=== PATIENT | female | born 1980 | race Caucasian/White ===

== ENCOUNTER 2016-08-24 11:22 | Emergency (ER) | payer BC ==
[2016-08-24 11:39] VITALS: TEMP 98.6; O2SAT 96
[2016-08-24] MEDS ORDERED: KETOROLAC TROMETHAMINE INJ 30 MG/ML VIAL IM ONE (11:43)
[2016-08-24] MEDS ORDERED: HYDROcodone 7.5MG/APAP 325MG 1 EA TAB PO ONE (11:43)
--- NOTE | 2016-08-24 12:17 | RAD ---
EXAM DESCRIPTION: Lumbar Spine 3 Views CLINICAL HISTORY: 36 years Female, lbp with rad to groin on left COMPARISON: None. FINDINGS: 3 views of the lumbar spine show no vertebral body fracture or subluxation. The disc spaces are well-maintained. The sacroiliac joints are unremarkable. 2 calcifications project over the left kidney and suggest left-sided nephrolithiasis including a possible staghorn calculus in the left renal pelvis. No left ureteral calculus is identified. IMPRESSION: Left-sided nephrolithiasis including a probable small staghorn calculus in the left renal pelvis, but no additional lumbar spine abnormality. If clinically suspicious of a ureteral calculus, noncontrast CT is recommended. Electronically signed by: Skip Steiner MD 08/24/2016 12:15 PM CDT [email or web address]
--- NOTE | 2016-08-24 12:18 | RAD ---
EXAM DESCRIPTION: KUB CLINICAL HISTORY: 36 years Female, lbp with rad to groin on left COMPARISON: None. FINDINGS: 2 AP views of the abdomen and pelvis show a nonobstructive bowel gas pattern with a moderate amount stool and gas scattered the colon. There are at least 2 small calcifications projecting over the left kidney. A tiny calcification in the left side of the pelvis probably represents a phlebolith. No concerning bone lesion. IMPRESSION: Moderate amount of colonic stool and gas without obstruction. Left-sided nephrolithiasis with a probable phlebolith in the left-sided the pelvis. If clinically suspicious of a left ureteral calculus, noncontrast CT is recommended. Electronically signed by: Skip Steiner MD 08/24/2016 12:16 PM CDT Workstation: [email or web address]
--- NOTE | 2016-08-24 12:58 | CT ---
EXAM DESCRIPTION: Abdomen/Pelvis w/o Contrast CLINICAL HISTORY: let back and abd pain, hx of renal stones COMPARISON: None. TECHNIQUE: CT of the abdomen and pelvis was performed without contrast. Multiple axial images and multiplanar reconstructions were generated. This exam was performed according to our departmental dose-optimization program, which includes automated exposure control, adjustment of the mA and/or kV according to patient size and/or use of iterative reconstruction technique. FINDINGS: There is artifact from the patient's body wall contacting both sides of the CT gantry. This reduces image quality and somewhat limits evaluation. Lung bases: The visualized lung bases are clear. Solid organs: There is an obstructing 1.5 cm calculus at the left ureteropelvic junction with moderate to severe hydronephrosis and perinephric stranding. There is also a 1 cm nonobstructing calculus in the inferior pole of the left kidney. Evaluation of the solid organs is limited due to lack of IV contrast. Hepatic steatosis. Cholelithiasis. The spleen, pancreas, right kidney, and adrenal glands are unremarkable. Gastrointestinal: The stomach and small intestine are unremarkable. Scattered colonic diverticulosis is present without CT evidence for diverticulitis. The appendix is not definitely visualized, but there is no pericecal inflammation. No free fluid or free air. Vascular: Limited evaluation due to lack of IV contrast. The abdominal aorta is normal in caliber. Lymph nodes: No pathologically enlarged lymph nodes are present by CT size criteria. Musculoskeletal and soft tissues: No destructive osseous lesions are present. Urinary bladder and pelvic organs: The urinary bladder is normal. The uterus and adnexal structures are unremarkable. IMPRESSION: 1. Obstructing 1.5 cm calculus at the left ureteropelvic junction with moderate to severe left hydronephrosis and perinephric stranding. 2. Additional nonobstructing left nephrolithiasis. 3. Cholelithiasis. 4. Hepatic steatosis. 5. Colonic diverticulosis without CT evidence for diverticulitis. Electronically signed by: Slade Fabian MD 08/24/2016 12:56 PM CDT
--- NOTE | 2016-08-24 13:30 | ED.PDOC ---
History of Present Illness - General Chief Complaint: GI Problem Stated Complaint: back pain Time Seen by Provider: 08/24/16 11:23 Source: patient Exam Limitations: no limitations - History of Present Illness Initial Comments: the patient is a 36-year-old female presenting to the emergency room secondary to left flank pain with radiation around to her groin. The patient has had some mild urinary frequency. She does have a history of kidney stones in the past. Pain started in its worst yesterday. She had had a little bit of pain prior. No fevers. Mild nausea when the pains at its worst. No syncope. No diarrhea. No constipation. Timing/Duration: unsure Severity: severe Improving Factors: nothing Worsening Factors: nothing Associated Symptoms: malaise, nausea/vomiting Allergies/Adverse Reactions: Allergies Promethazine [From Phenergan] Adverse Reaction (Verified 08/24/16 11:40) Home Medications: Ambulatory Orders Atenolol [Tenormin] 100 mg PO DAILY 08/24/16 Chlorthalidone 25 mg PO DAILY 08/24/16 Review of Systems - Review of Systems Constitutional: States: malaise EENTM: States: no symptoms reported Respiratory: States: no symptoms reported Cardiology: States: no symptoms reported Gastrointestinal/Abdominal: States: abdominal pain Genitourinary: States: see HPI Past Medical History (General) - Patient Medical History Hx Hypertension: Yes Hx Renal Disease: - kidney stones Surgical History: appendectomy - Vaccination History Hx Influenza Vaccination: No - Social History Hx Tobacco Use: No Hx Alcohol Use: No Hx Substance Use: No Hx Substance Use Treatment: No Hx Depression: No - Activities of Daily Living Hospice Agency (if applicable):: None - Female History Patient is a Female of Child Bearing Age (10 -59 yrs old): Yes Patient : No Family Medical History - Family History Mother Family History: Unknown Physical Exam - Physical Exam General Appearance: Alert, No apparent distress, Obvious distress Eye Exam: bilateral normal Ears, Nose, Throat: normal ENT inspection, normal pharynx Neck: full range of motion, supple, normal inspection Respiratory: chest non-tender, lungs clear, normal breath sounds, no respiratory distress, no accessory muscle use Cardiovascular/Chest: normal peripheral pulses, regular rate, rhythm, no edema Peripheral Pulses: radial,left: 2+, dorsalis pedis,right: 2+, dorsalis pedis, left: 2+ Gastrointestinal/Abdominal: soft, other - the patient is morbidly obese. She does have some mild left lower quadrant to left abdominal discomfort palpation. 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 Lab work looks fairly reassuring however CT scan shows a 1.5 cm obstructing stone in the left ureteropelvic junction with very significant hydronephrosis and perinephric stranding. The patient has responded fairly well to pain medications. We have contacted urology and they have agreed to see her this evening. Blood pressure was elevated but patient was in significant pain. She does need to continue her pressure medications and keep a blood pressure diary to make sure this is gotten under better control. repeat blood pressure here was 145/93. ER warnings are given for any significant worsening. he patient received a dose of hydrocodone and Toradol while here. nothing by mouth for now. - Results/Orders Results/Orders: Laboratory Tests 08/24/16 08/24/16 08/24/16 11:43 11:49 12:30 WBC 10.3 RBC 4.14 L Hgb 12.1 Hct 36.4 MCV 87.9 MCH 29.2 MCHC 33.3 RDW 12.4 Plt Count 273 MPV 9.0 Absolute Neuts (auto) 7.30 H Absolute Lymphs (auto) 1.90 Absolute Monos (auto) 0.80 Absolute Eos (auto) 0.30 Absolute Basos (auto) 0.10 Neutrophils % 70.2 Lymphocytes % 18.4 L Monocytes % 7.4 Eosinophils % 2.6 Basophils % 1.4 PT INR PTT (SP) Sodium Potassium Chloride Carbon Dioxide Anion Gap BUN Creatinine BUN/Creatinine Ratio Random Glucose Serum Osmolality Calcium Total Bilirubin AST ALT Alkaline Phosphatase Serum Total Protein Albumin Globulin Albumin/Globulin Ratio Urine Color Yellow Urine Appearance Clear Urine pH 6.5 Ur Specific Ralph 1.025 Urine Protein Trace Urine Glucose (UA) Negative Urine Ketones Negative Urine Blood Trace-intact H Urine Nitrite Negative Urine Bilirubin Negative Urine Urobilinogen 0.2 Ur Leukocyte Esterase Negative Urine RBC 1-3 Urine WBC 0-1 Ur Epithelial Cells 3-5 Urine Bacteria Rare Urine HCG, Qual Negative 08/24/16 08/24/16 12:30 12:30 WBC RBC Hgb Hct MCV MCH MCHC RDW Plt Count MPV Absolute Neuts (auto) Absolute Lymphs (auto) Absolute Monos (auto) Absolute Eos (auto) Absolute Basos (auto) Neutrophils % Lymphocytes % Monocytes % Eosinophils % Basophils % PT 12.4 INR 1.100 PTT (SP) 35.4 Sodium 136 Potassium 4.5 Chloride 100 L Carbon Dioxide 27 Anion Gap 13.5 BUN 13 Creatinine 0.88 BUN/Creatinine Ratio 14.8 Random Glucose 122 H Serum Osmolality 273.4 L Calcium 9.4 Total Bilirubin 0.8 AST 27 ALT 18 Alkaline Phosphatase 51 Serum Total Protein 8.4 H Albumin 4.6 Globulin 3.8 H Albumin/Globulin Ratio 1.2 Urine Color Urine Appearance Urine pH Ur Specific Ralph Urine Protein Urine Glucose (UA) Urine Ketones Urine Blood Urine Nitrite Urine Bilirubin Urine Urobilinogen Ur Leukocyte Esterase Urine RBC Urine WBC Ur Epithelial Cells Urine Bacteria Urine HCG, Qual Departure - Departure Clinical Impression: Ureterolithiasis Disposition: Discharge to Home or Self Care Condition: Fair Departure Forms: ED Discharge - Pt. Copy, Patient Portal Self Enrollment Diet: other - Nothing by mouth Activity: increase activity as tolerated Home Medications: Ambulatory Orders Atenolol [Tenormin] 100 mg PO DAILY 08/24/16 Chlorthalidone 25 mg PO DAILY 08/24/16 Additional Instructions: the patient is a 17-year-old male presenting with what appears to be an insect bite with a very small area of tissue necrosis centrally and surrounding erythema to the right anterior forearm. The area of necrosis was unroofed. No vazquez pus was obtained from behind it. The patient will be placed on Bactrim twice daily for 7 days. He needs to take this with food. He needs to wash the lesion 2- 3 times daily with an antibacterial soap. He can keep it covered with a Band-Aid and triple antibiotic ointment. If the wound is significantly worsening over the weekend then he will need to be reevaluated by his primary care doctor on Sunday. Otherwise he should probably expect this lesion to take close to a month to heal back in. First dose of Bactrim was given here. ER warnings were given for any acute worsening. No evidence of anaphylaxis or significant allergic reaction. follow-up with urology in one hour.
[2016-08-24 13:44] VITALS: BP 145/93
== END 2016-08-24 13:44 | disposition home or self-care (01) ==
LOC: ER 11:22
DX: N13.2 Hydronephrosis with renal and ureteral calculous obstruction (principal); I10 Essential (primary) hypertension; Z87.442 Personal history of urinary calculi; Z88.8 Allergy status to other drugs, medicaments and biological substances
CPT/HCPCS: 36415; 72100; 74000; 74176; 80053; 81001; 81025; 85025; 85610; 85730; J1885

== ENCOUNTER → 2016-11-17 | Outpatient (CLI) | payer BC ==
--- NOTE | 2016-11-18 16:21 | CT ---
PROCEDURE: Abdomen/Pelvis w/wo Contrast Clinical History: CALCULUS OF KIDNEY Indication: Same as above. Comparison: None. Technique: CT of the abdomen and pelvis was done without and with intravenous contrast, followed by orthogonal reconstructions. Oral contrast was not given for the study. The patient was injected with contrast intravenously, without any documented immediate adverse reactions. This exam was performed according to our departmental dose-optimization program, which includes automated exposure control, adjustment of the mA and/or KV according to the patient's size and/or use of iterative reconstruction technique. Findings: Images through the lung bases do not show any focal infiltrates or pleural effusions. The pancreas, spleen and the bilateral adrenal glands appear unremarkable. There is fatty metamorphosis of the liver and mild hepatomegaly There is presence of multiple intraluminal gallstones. There is no CT evidence of urinary tract calculi or urinary tract obstruction. The bilateral kidneys enhance with contrast in a normal fashion, without any evidence of hydronephrosis on either side. The bilateral ureters and the bilateral periureteral soft tissues and fat planes are unremarkable. There is no evidence of hydroureter on either side. The urinary bladder is unremarkable . The small bowel appears unremarkable, without any evidence of small bowel obstruction or bowel wall thickening. There is no CT evidence of acute appendicitis, pericecal inflammatory change or ileocecal mesenteric adenitis. The ileocecal junction appears unremarkable. There is no CT evidence of acute colonic diverticulitis or colitis or large bowel obstruction. The splenic and portal veins are of normal caliber, without any filling defects. There is no pathological lymphadenopathy in the retroperitoneum or in the pelvic region. There is no evidence of free fluid or free air in the abdomen or the pelvic region. There is no clinically significant abdominal aortic aneurysm. There is presence of small fat-containing periumbilical ventral hernia defect. An anteverted uterus is seen Minimal degenerative changes seen in the lumbar spine The paravertebral soft tissues are unremarkable. The remainder of the pelvic structures are unremarkable. Impression: There is fatty metamorphosis of the liver and mild hepatomegaly. There is presence of multiple intraluminal gallstones. There is no CT evidence of urinary tract calculi or urinary tract obstruction. Location of Interpretation: [facility] Electronically signed by: Seamus Hinton MD 11/18/2016 4:20 PM CDT Workstation: [id number]
== END | disposition home or self-care (01) ==
LOC: CT 08:36
PROVIDERS: ATTEND Urology
DX: N20.0 Calculus of kidney (principal)

== ENCOUNTER 2019-11-30 11:53 | Emergency (ER) | payer BC ==
[2019-11-30] MEDS ORDERED: ALUM & MAG HYDROX-SIMETHICONE 30 ML, LIDOCAINE VISCOUS 2% 15 ML PO ONE ×2 (12:17)
[2019-11-30] MEDS ORDERED: ONDANSETRON ODT 8 MG TAB SL ONE (12:17)
--- NOTE | 2019-11-30 13:26 | RAD ---
EXAM: XR Abdomen, 2 Views and XR Chest, 1 View CLINICAL HISTORY: The patient is 39 years old and is Female; epigastric to ruq pain TECHNIQUE: Frontal view of the chest, frontal view of the abdomen/pelvis and upright or decubitus view of the abdomen. COMPARISON: CT abdomen pelvis from 11/17/2016 FINDINGS: LUNGS: Unremarkable. No consolidation. PLEURAL SPACE: Unremarkable. No pneumothorax. HEART: Unremarkable. No cardiomegaly. MEDIASTINUM: Unremarkable. INTRAPERITONEAL SPACE: No obvious free air. GASTROINTESTINAL TRACT: No significant bowel dilatation visualized. Minimal amount of stool visualized in the colon. ORGANS: Multiple gallstones visualized projecting over the right upper quadrant. BONES/JOINTS: No acute osseous findings. IMPRESSION: 1. Cholelithiasis. 2. No obvious acute findings. Electronically signed by: Altagracia Stark MD 11/30/2019 1:25 PM CDT
[2019-11-30 14:17] VITALS: O2SAT 96
[2019-11-30] MEDS ORDERED: SODIUM CHLORIDE 0.9% 1000ML 1,000 ML IVS ONE (14:18)
[2019-11-30] MEDS ORDERED: KETOROLAC TROMETHAMINE INJ 30 MG/ML VIAL IM ONE (14:18)
[2019-11-30] MEDS ORDERED: MORPHINE SULFATE INJ 10 MG/ML VIAL IV ONE (14:18)
[2019-11-30] MEDS ORDERED: PANTOPRAZOLE SODIUM IV 40 MG VIAL IV ONE (14:19)
[2019-11-30] MEDS ORDERED: ACETYLCYSTEIN 20 % 6,000 MG/30 ML VIAL PO ONE (14:20)
[2019-11-30] MEDS ORDERED: KETOROLAC TROMETHAMINE INJ 30 MG/ML VIAL IV ONE (14:57)
--- NOTE | 2019-11-30 15:06 | CT ---
EXAM DESCRIPTION: Abdomen/Pelvis w/Contrast RadLex: CT ABDOMEN PELVIS WITH IV CONTRAST CLINICAL HISTORY: 39 years Female; epigastric adn ruq pain; MAIN TECHNIQUE: CT of the abdomen and pelvis without contrast. Coronal and sagittal reformats were created. No oral contrast. All CT scans at this facility use dose modulation, iterative reconstruction, and/or weight based dosing when appropriate to reduce radiation dose to as low as reasonably achievable. COMPARISON: None. FINDINGS: Chest: Lung bases show no acute abnormality. Abdomen: Liver:No focal lesions. No intrahepatic ductal distention. Gallbladder: The gallbladder is fluid-filled but not abnormally dilated. No gallbladder wall thickening. There are multiple gallstones within the lumen of the gallbladder. There is also a stone within the gallbladder neck. No inflammatory changes are seen. The common bile duct is normal caliber. Pancreas: Normal. Spleen:Within normal limits Right kidney:No hydronephrosis. No renal or ureteral calculi. Left kidney:No hydronephrosis. No renal or ureteral calculi. Adrenal glands:Within normal limits Intestines: The stomach is nondistended. Small and large intestines are normal in caliber. No inflammatory changes are seen. There is no bowel obstruction or ileus. There is no diverticulosis. No inflammatory changes are seen within the colon. Appendix:No appendicitis. Fluid: No free intraperitoneal fluid or air. Vascular structures:Abdominal aorta is not dilated. Bladder/Pelvis: Unremarkable. Bones: No acute bone findings. Note that evaluation of the bowel and solid organs is somewhat limited due to lack of intravenous and oral contrast. IMPRESSION: 1. There are multiple gallstones within a mildly distended gallbladder. A gallstone is present at the gallbladder neck. Findings suggest the possibility of early, or intermittent, cystic duct obstruction as a cause of patient's symptoms. No CT findings of acute cholecystitis. Gallbladder ultrasound could be used to further evaluate. 2. No other abnormality is identified. Electronically signed by: Dave Barbosa MD 11/30/2019 3:05 PM CDT
[2019-11-30] MEDS ORDERED: HYDROcodone 7.5MG/APAP 325MG 1 EA TAB PO ONE (15:40)
[2019-11-30] MEDS ORDERED: CIPROFLOXACIN 500 MG TAB PO ONE (15:40)
--- NOTE | 2019-11-30 15:42 | ED.PDOC ---
History of Present Illness - General Chief Complaint: Abdominal Pain Stated Complaint: epigastric pain,nausea Time Seen by Provider: 11/30/19 12:10 Source: patient Exam Limitations: no limitations - History of Present Illness Initial Comments: The patient is a 39-year-old female presented emergency room secondary to epigastric to right upper quadrant pain of less than a days' duration. She did have a couple of episodes of nausea and one episode of vomiting. She does have known gallbladder stones. No fever. No blood or bile in the vomitus. No history of stomach ulcers. No respiratory symptoms. Timing/Duration: 24 hours Severity: moderate Improving Factors: nothing Worsening Factors: eating Associated Symptoms: loss of appetite, malaise, nausea/vomiting Allergies/Adverse Reactions: Allergies Promethazine [From Phenergan] Adverse Reaction (Verified 08/24/16 11:40) Home Medications: Ambulatory Orders Atenolol [Tenormin] 100 mg PO DAILY 08/24/16 Chlorthalidone 25 mg PO DAILY 08/24/16 Ciprofloxacin [Cipro] 500 mg PO BID #10 tab 11/30/19 Dapagliflozin Propanediol [Farxiga] 5 mg PO DAILY 11/30/19 Famotidine [Pepcid Tab] 20 mg PO BID #14 tab 11/30/19 Metformin HCl [Metformin Hydrochloride E] 500 mg PO BID 11/30/19 Ondansetron Odt [Zofran ODT] 4 mg PO Q8HR PRN #5 tab 11/30/19 Tramadol HCl 50 mg PO Q8HR PRN #20 tab 11/30/19 Review of Systems - Review of Systems Constitutional: States: no symptoms reported EENTM: States: no symptoms reported Respiratory: States: no symptoms reported Cardiology: States: no symptoms reported Gastrointestinal/Abdominal: States: abdominal pain, nausea, vomiting Genitourinary: States: no symptoms reported Musculoskeletal: States: no symptoms reported Skin: States: no symptoms reported Neurological: States: no symptoms reported Endocrine: States: no symptoms reported All other Systems: No Change from Baseline Past Medical History (General) - Patient Medical History Hx Stroke: No Hx Congestive Heart Failure: No Hx Hypertension: Yes Hx Diabetes: Yes Hx Renal Disease: - kidney stones Surgical History: appendectomy - Vaccination History Hx Influenza Vaccination: No - Social History Hx Tobacco Use: No Hx Alcohol Use: No Hx Substance Use: No Hx Substance Use Treatment: No Hx Depression: No - Female History Patient is a Female of Child Bearing Age (10 -59 yrs old): Yes Patient : No Family Medical History - Family History Mother Family History: Unknown Physical Exam - Physical Exam General Appearance: Alert, No apparent distress, Other - Obviously uncomfortable Eye Exam: bilateral normal Ears, Nose, Throat: hearing grossly normal, normal pharynx Neck: non-tender, full range of motion, supple Respiratory: lungs clear, normal breath sounds, no respiratory distress, no accessory muscle use Cardiovascular/Chest: normal peripheral pulses, regular rate, rhythm, no edema Peripheral Pulses: radial,right: 2+, radial,left: 2+ Gastrointestinal/Abdominal: soft, other - Right upper quadrant discomfort to palpation. Morbidly obese. 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 No evidence of inflammation is seen on the CT scan and laboratory work is reassuring at this point. She does have a stone that appears to be sitting at the neck of the gallbladder. The patient has received a liter of IV fluids as well as a dose of ciprofloxacin and pain medications. She needs to maintain a liquid diet and keep her self very well-hydrated. Activity is encouraged. She will be written for tramadol for as needed use to control pain and Zofran to control any nausea. If symptoms are not improving over the next 24 to 36 hours and she does need to seek an appointment with the general surgeon of her choice for further evaluation. The patient is in agreement with this plan. ER warnings are given. Symptoms have somewhat improved since her arrival. [email or web address] hooks [phone] 11/30/19 15:47 [employer]LECT[employer]PER[employer]OR aware consulted. - Results/Orders Results/Orders: CT scan of abdomen pelvis with contrast shows no evidence of acute infection or inflammation of the gallbladder however the gallbladder is mildly distended with multiple stones, as well as a stone at the neck of the gallbladder. No evidence of dilation of ducts. Laboratory Tests 11/30/19 11/30/19 11/30/19 12:51 12:51 12:51 WBC 8.0 RBC 4.24 Hgb 13.0 Hct 38.1 MCV 89.7 MCH 30.6 MCHC 34.1 RDW 12.9 Plt Count 283 MPV 9.7 Absolute Neuts (auto) 4.80 Absolute Lymphs (auto) 2.40 Absolute Monos (auto) 0.30 Absolute Eos (auto) 0.30 Absolute Basos (auto) 0.10 Neutrophils % 60.1 Lymphocytes % 30.4 Monocytes % 4.3 Eosinophils % 3.7 Basophils % 1.5 Sodium 136 Potassium 3.7 Chloride 94 L Carbon Dioxide 30 Anion Gap 15.7 BUN 14 Creatinine 0.60 BUN/Creatinine Ratio 23.3 H Random Glucose 124 H Serum Osmolality 273.8 L Lactic Acid 2.1 Calcium 9.5 Total Bilirubin 1.0 AST 46 H ALT 32 Alkaline Phosphatase 55 Serum Total Protein 7.9 Albumin 4.2 Globulin 3.7 H Albumin/Globulin Ratio 1.1 Amylase 23 L Lipase Serum HCG, Qual 11/30/19 11/30/19 12:51 12:51 WBC RBC Hgb Hct MCV MCH MCHC RDW Plt Count MPV Absolute Neuts (auto) Absolute Lymphs (auto) Absolute Monos (auto) Absolute Eos (auto) Absolute Basos (auto) Neutrophils % Lymphocytes % Monocytes % Eosinophils % Basophils % Sodium Potassium Chloride Carbon Dioxide Anion Gap BUN Creatinine BUN/Creatinine Ratio Random Glucose Serum Osmolality Lactic Acid Calcium Total Bilirubin AST ALT Alkaline Phosphatase Serum Total Protein Albumin Globulin Albumin/Globulin Ratio Amylase Lipase 26 Serum HCG, Qual Negative Departure - Departure Clinical Impression: Calculus of gallbladder with cholecystitis Qualifiers: Cholecystitis acuity: acute and chronic Biliary obstruction: without biliary obstruction Qualified Code(s): K80.12 - Calculus of gallbladder with acute and chronic cholecystitis without obstruction Disposition: Discharge to Home or Self Care Condition: Fair Departure Forms: ED Discharge - Pt. Copy, Patient Portal Self Enrollment Instructions: DI for Abdominal Pain-Adult, Gallstones (DC) Diet: full liquid diet Activity: increase activity as tolerated Referrals: AUTUMN FUENTES [Primary Care Provider] - 1-2 Weeks Prescriptions: Tramadol HCl 50 mg PO Q8HR PRN #20 tab PRN Reason: Moderate Pain Ondansetron Odt [Zofran ODT] 4 mg PO Q8HR PRN #5 tab PRN Reason: Nausea--Moderate Ciprofloxacin [Cipro] 500 mg PO BID #10 tab Famotidine [Pepcid Tab] 20 mg PO BID #14 tab Home Medications: Ambulatory Orders Atenolol [Tenormin] 100 mg PO DAILY 08/24/16 Chlorthalidone 25 mg PO DAILY 08/24/16 Ciprofloxacin [Cipro] 500 mg PO BID #10 tab 11/30/19 Dapagliflozin Propanediol [Farxiga] 5 mg PO DAILY 11/30/19 Famotidine [Pepcid Tab] 20 mg PO BID #14 tab 11/30/19 Metformin HCl [Metformin Hydrochloride E] 500 mg PO BID 11/30/19 Ondansetron Odt [Zofran ODT] 4 mg PO Q8HR PRN #5 tab 11/30/19 Tramadol HCl 50 mg PO Q8HR PRN #20 tab 11/30/19 Additional Instructions: The patient is a 39-year-old female presenting with possible early cholecystitis. No evidence of inflammation is seen on the CT scan and laboratory work is reassuring at this point. She does have a stone that appears to be sitting at the neck of the gallbladder. The patient has received a liter of IV fluids as well as a dose of ciprofloxacin and pain medications. She needs to maintain a liquid diet and keep her self very well-hydrated. Activity is encouraged. She will be written for tramadol for as needed use to control pain and Zofran to control any nausea. If symptoms are not improving over the next 24 to 36 hours and she does need to seek an appointment with the general surgeon of her choice for further evaluation. The patient is in agreement with this plan. ER warnings are given. Symptoms have somewhat improved since her arrival.
[2019-11-30 16:21] VITALS: BP 144/78; TEMP 97.4
== END 2019-11-30 16:21 | disposition home or self-care (01) ==
LOC: ER 11:53
DX: K80.12 Calculus of gallbladder with acute and chronic cholecystitis without obstruction (principal); R11.2 Nausea with vomiting, unspecified; I10 Essential (primary) hypertension; E11.9 Type 2 diabetes mellitus without complications; Z87.442 Personal history of urinary calculi
CPT/HCPCS: 36415; 74019; 74177; 80053; 82150; 83605; 83690; 84703; 85025; J1885; J2270; J7030

== ENCOUNTER → 2019-12-02 | Outpatient (CLI) | payer BC ==
--- NOTE | 2019-12-02 15:28 | US ---
EXAM DESCRIPTION: Abdomen,Complete: Ultrasound. CLINICAL HISTORY: 39 years Female ABD PAIN COMPARISON: None Available. TECHNIQUE: Transabdominal scanning: grayscale and Doppler modes. FINDINGS: Gallbladder: Normal size containing multiple gravity dependent echogenic stones with acoustic shadowing. Larger stones measuring 1.2-1.3 cm in diameter. No fluid around the gallbladder. Minimal wall thickening 3.4 mm Non-tender with transducer pressure. Common bile duct: caliber 6.1 mm minimally dilated. Liver: Heterogeneously increased echogenicity; limited visualization of the posterior liver in the soft tissues posterior to the liver. Contour liver capsule smooth where seen. No fluid around the liver. Intrahepatic biliary ducts normal caliber. Doppler hepatopedal flow and normal caliber portal vein 16 mm.. Long axis right lobe 19.1 Pancreas: normal size and echogenicity. Duct not seen. Complete abdominal aorta: Normal caliber from the proximal segment to the mid segment; distal segment to the bifurcation obscured by intestinal gas.. IVC: visualized and normal caliber. Right kidney: long axis measures 10.2 cm; volume 169 mL. Cortical echogenicity normal. Normal cortical thickness. No echogenic stones; no hydronephrosis. Left kidney: long axis measures 12.9 cm; volume 248.1. Cortical echogenicity and normal. Normal cortical thickness. No echogenic stones; no hydronephrosis. Spleen: Normal. No focal lesions.. 15.1 cm long axis. Other: None. IMPRESSION: 1. Cholelithiasis with gallbladder wall thickening. No fluid. Nontender with transducer pressure. Common bile duct borderline dilated. 2. Steatosis of the liver with mild to moderate enlargement. Physiologic vascularity. Smooth capsule with no ascites and no intrahepatic duct dilation. Limited visualization of the pancreas but no gross abnormalities. Normal caliber of the proximal and mid abdominal aorta and IVC. 2. Left kidney is enlarged but otherwise normal findings bilaterally. Mild splenomegaly but no focal lesions. No ascites. Electronically signed by: Dave Mccrary MD 12/02/2019 3:27 PM CDT
== END ==
LOC: US 13:11
PROVIDERS: ATTEND Nurse Practitioner Family
DX: K80.20 Calculus of gallbladder without cholecystitis without obstruction (principal); N28.81 Hypertrophy of kidney; K76.0 Fatty (change of) liver, not elsewhere classified; R16.1 Splenomegaly, not elsewhere classified